=== PATIENT | male | born 1945 | race Caucasian/White ===

== ENCOUNTER 2018-10-15 06:44 | Day surgery (SDC) | payer MEDICARE, BC ==
[2018-10-15] MEDS ORDERED: Lactated Ringers 1,000 ML IV SCH (07:00)
[2018-10-15] MEDS ORDERED: Sodium Chloride 0.9% 10 ML Syringe FLUSH PRN (07:00)
[2018-10-15] MEDS ORDERED: Propofol 200 MG/20 ML SDV ONE ×2 (09:21→09:35)
[2018-10-15] MEDS ORDERED: fentaNYL 100 MCG/2 ML SDV ONE (09:21)
--- NOTE | 2018-10-15 15:01 | OR ---
SURGERY DATE : 10/15/18 REFERRING PROVIDER: Sandra Wheeler PREOPERATIVE DIAGNOSIS: History of Landeros's esophagus. Last EGD was 07/2014 and was done in [place]. The patient is on Protonix 40 mg daily and Zantac 150 mg daily. He does have some trouble on occasion with swallowing liquids up in the neck area. POSTOPERATIVE DIAGNOSES: 1. Mild antritis. Cold biopsy x2 bites taken for path and H. pylori. 2. Scattered benign-appearing stomach gland fundic-type polyps. None of these were worrisome in appearance so none removed. 3. Small hiatal hernia (less than 2 cm). 4. Cold biopsy x4 bites taken from the GE junction. PROCEDURE: EGD with cold biopsy x2 sites. SURGEON: Juan Carlos Beebe MD ANESTHESIA: MAC DESCRIPTION OF PROCEDURE: Deonte is a 73-year-old male who was brought to endoscopy suite. After discussion of risks and benefits (including but not limited to reaction to medication, bleeding, infection, aspiration, perforation) , informed consent was obtained for sedation and EGD along with biopsy &/or dilatation. Pre-procedure exam including oral cavity unremarkable. IV, O2, and monitors were placed. Patient was placed in the L lateral position and sedation was administered. The bite block was placed gently, and the scope lightly lubricated and passed through the bite block and over the tongue. Hypopharynx and vocal cords visualized and unremarkable. The scope was passed through the cricopharynx and into the esophagus. The scope was passed into the distal esophagus and the GE junction was visualized and photographed. GE junction was remarkable for small hiatal hernia, less than 2 cm. Cold biopsyx4 bites taken from the GE junction on the way out. The scope was advanced and the gastric rajan suctioned. the pylorus was identified and intubated and then the scope was advanced to the 3rd portion of the duodenum. The 2nd and 3rd portions of the duodenum were unremarkable. Duodenal bulb visualized and unremarkable except for some minimal inflammation at most. The scope was brought back into the stomach and the pylorus and antrum were remarkable for mild antritis. Cold biopsy x2 bites taken for path and H.pylori. The scope was then retroflexed to visualize the angularis, fundus ,body, and cardia. These were remarkable for some scattered benign-appearing stomach gland polyps (likely fundic type polyps). The scope was desufflated of air and then scope was slowly withdrawn. The esophagus was closely visualized during withdrawal all the way into the posterior pharynx, and it was normal in appearance. The patient tolerated the procedure well and went to recovery in a stable condition. Pt was monitored until at baseline status. Findings and discharge instructions were reviewed and the pt was discharged in good condition. COMPLICATIONS: None. TOTAL TIME: 10 minutes. ESTIMATED BLOOD LOSS: About 1 mL. RECOMMENDATIONS/FOLLOWUP: We will await results of path report and send a letter with results. I would like to have the patient continue on his Protonix 40 mg daily and Zantac 150 mg daily as these do seem to be controlling symptoms as well as his history of Landeros's. I would like to kindly thank Ilene Wheeler for this referral. DMB: 10/15/2018 10:14:13 MODL: 10/15/2018 10:35:01 /[id number] MTDD
--- NOTE | 2018-10-15 15:01 | OR ---
DATE OF SURGERY: 10/15/2018. REFERRING PROVIDER: Ilene Wheeler PA-C PRE-OPERATIVE DIAGNOSIS: History of colon polyps. Last colonoscopy was about 6 years ago. POST-OPERATIVE DIAGNOSIS: Somewhat tortuous colon, but otherwise normal. PROCEDURE: Colonoscopy. SURGEON: Juan Carlos Beebe M.D. ANESTHESIA: Monitored anesthesia care. BOWEL PREP: Good. Deonte is a 73-year-old male who was brought to the endoscopy suite after discussing risks and benefits of the procedure. Informed consent was obtained for conscious sedation and colonoscopy with or without biopsy and/or polypectomy. We also discussed possibility of missed lesions. Pre-procedure exam was unremarkable. IV, oxygen, and monitors were placed. The patient was placed in the left lateral decubitus position. Sedation was administered and a digital rectal exam was performed which was unremarkable. Colonoscope was passed into the rectum and slowly advanced all the way to the cecum. The patient had a somewhat tortuous colon requiring some scope maneuvers to obtain cecal intubation. Cecum was viewed and photographed. The colonoscope was slowly withdrawn and the mucosa was closed observed in a direct circumferential manner. The ascending colon was unremarkable. The transverse colon was unremarkable. The descending colon was unremarkable. The sigmoid colon was unremarkable. Retroflexion was performed and rectal mucosa was unremarkable. Scope was removed. The patient tolerated the procedure well. The patient was monitored until that baseline status. Discharge instructions were reviewed and the patient was discharged in good condition. COMPLICATIONS: None. TOTAL TIME: 16 minutes. ESTIMATED BLOOD LOSS: None. RECOMMENDATIONS/FOLLOW-UP: Normal colonoscopy. Given the patient's history of previous polyps, I would consider repeating colonoscopy again in 5 years. I would like to kindly thank Ilene Wheeler for this referral. DMB: 10/15/2018 10:16:49 MODL: 10/15/2018 10:49:40 /[id number]
== END 2018-10-15 11:00 | disposition home or self-care (01) ==
LOC: VM.SDS 06:44
PROVIDERS: ATTEND Family Medicine
DX: K29.60 Other gastritis without bleeding (principal); K44.9 Diaphragmatic hernia without obstruction or gangrene; K22.70 Barrett's esophagus without dysplasia; K20.9 Esophagitis, unspecified; Z86.010 Personal history of colon polyps; K31.89 Other diseases of stomach and duodenum; J45.20 Mild intermittent asthma, uncomplicated; G47.33 Obstructive sleep apnea (adult) (pediatric); E78.5 Hyperlipidemia, unspecified; G25.81 Restless legs syndrome; N40.0 Benign prostatic hyperplasia without lower urinary tract symptoms; M19.90 Unspecified osteoarthritis, unspecified site; Z79.899 Other long term (current) drug therapy; Z87.891 Personal history of nicotine dependence; Z79.51 Long term (current) use of inhaled steroids; Z95.0 Presence of cardiac pacemaker; Z99.89 Dependence on other enabling machines and devices
CPT/HCPCS: 00813; 43239; G0121; J2704; J3010; J7120

== ENCOUNTER 2021-09-29 16:45 | Emergency (ER) | payer MEDICARE, BC ==
[2021-09-29 18:13] LABS: CHLORIDE,CL 107 mmol/L (98-107); SODIUM,NA 142 mmol/L (136-145)
[2021-09-29 18:16] LABS: ANION GAP 12.8 mmol/L (5-15)
== END 2021-09-29 18:30 | disposition home or self-care (01) ==
LOC: VM.ED 16:45
DX: R00.2 Palpitations (principal); I48.91 Unspecified atrial fibrillation; M19.90 Unspecified osteoarthritis, unspecified site; Z95.0 Presence of cardiac pacemaker; Z79.82 Long term (current) use of aspirin; Z79.899 Other long term (current) drug therapy
CPT/HCPCS: 36415; 80053; 82550; 83615; 84484; 85025; 86140; 93005; 93010; 99284; 99285-25

== ENCOUNTER 2024-07-23 07:13 | Day surgery (SDC) | payer MEDICARE, BC ==
[2024-07-23] MEDS: Lactated Ringers 1,000 ML IV SCH (07:29)
[2024-07-23] MEDS ORDERED: Propofol 200 MG/20 ML SDV ONE ×2 (07:45→08:03)
[2024-07-23] MEDS ORDERED: fentaNYL 100 MCG/2 ML SDV ONE (07:45)
== END 2024-07-23 09:44 | disposition home or self-care (01) ==
LOC: VM.SDS 07:13
PROVIDERS: ATTEND Student in an Organized Health Care Education/Training Program
DX: Z12.11 Encounter for screening for malignant neoplasm of colon (principal); D12.3 Benign neoplasm of transverse colon; Z86.0100 Personal history of colon polyps, unspecified; I48.0 Paroxysmal atrial fibrillation; E78.5 Hyperlipidemia, unspecified; J45.20 Mild intermittent asthma, uncomplicated; K21.9 Gastro-esophageal reflux disease without esophagitis; N40.1 Benign prostatic hyperplasia with lower urinary tract symptoms; Z87.891 Personal history of nicotine dependence
CPT/HCPCS: 45380; J2704; J3010; J7120; 00811; 88305; 99100

== ENCOUNTER 2024-10-01 23:20 | Emergency (ER) | payer MEDICARE, BC | END 2024-10-01 23:58 | disposition home or self-care (01) | LOC: VM.ED 23:20 | DX: S61.211A Laceration without foreign body of left index finger without damage to nail, initial encounter (principal); I48.91 Unspecified atrial fibrillation; E78.00 Pure hypercholesterolemia, unspecified; Z95.0 Presence of cardiac pacemaker; Z79.899 Other long term (current) drug therapy; Z79.01 Long term (current) use of anticoagulants; W26.8XXA Contact with other sharp object(s), not elsewhere classified, initial encounter; Y93.89 Activity, other specified | CPT/HCPCS: 12001; 99282; 99283 ==

== ENCOUNTER 2024-10-21 19:36 | Emergency (ER) | payer MEDICARE, BC ==
[2024-10-21 20:16] LABS: BASOPHILS PERCENT AUTO 0.1 % (0.2-1.2); EOSINOPHILS ABSOLUTE AUTO 0.2 x10^3/uL (0.0-0.5); HEMATOCRIT 42.5 % (40.0-52.0); HEMOGLOBIN 14.2 g/dL (14.0-18.0); IMMATURE GRAN ABSOLUTE AUTO 0.12 x10^3/uL (0.00-0.07); LYMPHOCYTES ABSOLUTE AUTO 1.8 x10^3/uL (1.0-4.8); LYMPHOCYTES PERCENT AUTO 20.8 % (25.0-50.0); MEAN CORPUSCULAR HGB CONC 33.4 g/dL (32.0-36.0); MEAN CORPUSCULAR VOLUME 89.7 fL (78.0-93.0); MONOCYTES ABSOLUTE AUTO 0.7 x10^3/uL (0.0-0.8); MONOCYTES PERCENT AUTO 7.5 % (2.0-11.0); NEUTROPHILS ABSOLUTE AUTO 5.9 x10^3/uL (1.8-7.7); NEUTROPHILS PERCENT AUTO 68.2 % (50.0-80.0); PLATELET COUNT,PLT 246 x10^3/uL (130-400); RED BLOOD CELL COUNT 4.74 x10^6/uL (4.5-6.0); WHITE BLOOD CELL COUNT,WBC 8.6 x10^3/uL (4.0-10.0)
[2024-10-21 20:40] LABS: ALBUMIN 3.4 g/dL (3.4-5.0); BILIRUBIN TOTAL 0.5 mg/dL (0.2-1.0); CALCIUM 8.8 mg/dL (8.5-10.1); CREATININE 1.3 mg/dL (0.70-1.30); EST CRCL DRUG DOSING (CG) 42.37 mL/min; MAGNESIUM 2.2 mg/dL (1.8-2.4); PROTEIN TOTAL,TP 6.8 g/dL (6.4-8.2)
== END 2024-10-21 21:12 | disposition home or self-care (01) ==
LOC: VM.ED 19:36
DX: R42 Dizziness and giddiness (principal); E78.00 Pure hypercholesterolemia, unspecified; J45.909 Unspecified asthma, uncomplicated; Z79.899 Other long term (current) drug therapy
CPT/HCPCS: 36415; 70450; 80053; 83735; 84484; 85025; 93005; 99284